=== PATIENT | male | born 1935 | race Caucasian/White ===

== ENCOUNTER 2016-07-28 13:13 | Outpatient (RCR) | payer MEDICARE, OTHER ==
--- OUTSIDE RECORDS SUMMARY | 2016-05-04 15:13 | XMS REPORT | Continuity of Care Document ---
Author Author [facility] Organization [facility] Address Unknown Phone Unavailable Care Team Providers Care Machine Pie Maker Name Role Phone Margy Fontana III PCP [phone] Source Comments Some departments are not documenting in the electronic medical record. If you do not see the information that you expected, contact Release of Information in the Health Information Management department at [phone] for further assistance in locating additional records.[facility] Active Allergies and Adverse Reactions Allergen Noted Date Severity Reactions Comments Demerol 08/24/2011 HALLUCINATIONS Metformin 08/24/2011 SEE COMMENTS Glimepiride has been working better to control blood sugars per pt Propranolol 07/20/2012 SEE COMMENTS altered mental status when tried in the late 1960s Valium 06/21/2012 HALLUCINATIONS Current Medications Prescription Sig. Disp. Refills Start End Date Status Date cyanocobalamin (VITAMIN Inject 1,000 mcg to Active B-12, RUBRAMIN) 1,000 area(s) as directed every mcg/mL injection [address](+) Take 40 mg by mouth Active (PRILOSEC) 40 mg capsule daily. atorvastatin (LIPITOR) 40 Take 40 mg by mouth Active mg tablet daily. donepezil (ARICEPT) 5 mg Take 5 mg by mouth at Active tablet bedtime daily. potassium chloride 20 mEq Take 10 mEq by mouth Active TbER daily. benzonatate (TESSALON) Take 1 Cap by mouth three 20 Cap 0 04/20/20 Active 100 mg capsule times daily as needed for 15 Cough. levothyroxine (SYNTHROID) Take 1 Tab by mouth 90 Tab 3 04/20/20 Active 100 mcg tablet daily. 15 ergocalciferol (VITAMIN Take 1 Cap by mouth every 12 Cap 3 07/04/20 Active D-2) 50,000 unit capsule 7 days. 15 metoprolol (LOPRESSOR) 25 Take 1 Tab by mouth twice 180 Tab 3 Active mg tablet daily. Indications: 15 CHRONIC HEART FAILURE, VENTRICULAR RATE CONTROL IN ATRIAL FIBRILLATION aspirin 81 mg chewable Take 1 Tab by mouth 90 Tab 3 07/04/20 Active tablet daily. 15 epoetin owen (PROCRIT) Inject 1 mL into area(s) 12 mL 1 07/05/20 Active 4,000 unit/mL injection as directed three times 15 weekly. allopurinol (ZYLOPRIM) Take 1 Tab by mouth 30 Tab 3 07/09/20 Active 100 mg tablet daily. 15 clopiDOGrel (PLAVIX) 75 Take 1 Tab by mouth 90 Tab 3 07/17/20 Active mg tablet daily. 15 furosemide (LASIX) 80 mg Take 1 Tab by mouth twice 90 Tab 3 08/01/20 Active tablet daily. 15 spironolactone Take 1 Tab by mouth 90 Tab 3 09/10/19 Active (ALDACTONE) 25 mg tablet daily. 16 Active Problems Problem Noted Date Malnutrition of moderate degree ([place]: 60% to less than 75% of standard weight) ([facility]) Acute on chronic diastolic (congestive) heart failure ([facility]) 06/20/2015 Chronic diastolic heart failure ([facility]) 06/17/2015 CKD (chronic kidney disease) stage 4, GFR 15-29 ml/min ([facility]) 06/11/2015 Gilbert's disease 04/16/2015 Tricuspid valve regurgitation 04/11/2015 Coronary artery disease - Non-obstructive 04/10/2015 Overview: 08/24/11 CT chest 3. Coronary atherosclerosis including calcific plaquing of the LAD, left circumflex and right coronary arteries. While this study was not optimized for assessment of the coronary anatomy, the left main coronary artery appears normal. The right coronary artery is reasonably well visualized and aside from some focal calcification proximally and incomplete visualization of the distal posterior descending branch, the RCA is dominant and appears normal. The mid and distal aspects of the LAD are not well visualized. The left circumflex is medium in caliber and aside from some focal calcification, appears unremarkable. 09/14/11 PC DJL recommended f/u of abnormalities found on CT with home loading unit operator powder charging &qual research manager. Pt scheduled for a cath with his primary loading unit operator powder charging tomorrow, Dr. Davenport. fax /ph and pt will be set up with a qual research manager. 07/15/12 Records requested for 2nd opinion visit regarding HTN and high dose labetolol. We requested cath report. 06/21/14: Cath at [facility] in [place] - 30% lesion in distal LAD & 30% lesion in ostial PDA AVM (arteriovenous malformation) 04/10/2015 Pulmonary lesion 01/02/2013 Overview: Followed by Dr. Clemente and Dr. Fontana Hx of nonischemic cardiomyopathy 07/20/2012 Overview: 1966 He states he contracted a "virus." 1968 1 episode of heart racing in 1968, associated with near syncope. (See Problem "perm AF") 2006 Echo: EF 55-60%, moderate MR, mild-moderate TR, PAP 45 mmHg, marked biatrial enlargement, mild concentric LVH 02/25/09 Per BITUMASTIC APPLIER's note: History of previous nonischemic cardiomyopathy, now normalized 08/24/11 Per DJL's note: mild impairment of left ventricular ejection fraction of unknown etiology. Mitral regurgitation - s/p MV repair 07/20/2012 Overview: 02/25/09 Per BITUMASTIC APPLIER, moderate MR 08/24/11 Per DJL, mild-moderate MR 06/27/12 - Echo: 1) Well preserved global left ventricular systolic function with an ejection fraction of approximately 55% 2) Moderate to severe mitral regurgitation 3) Moderate tricuspid regurgitation 4) PASP is estimated to be approximately 50-55 mmHg 5) Marked biatrial enlargement 6) No evidence of significant valvular stenosis on this study 06/22/14 s/p MV repair (annuloplasty with Vinod Alan 3-D 32 ring) & cryo-MAZE by Dr. Maher at [facility] in [place] Hypertension, essential 07/20/2012 Overview: 02/25/09 BITUMASTIC APPLIER OV BP (Left Arm): 136/84 BP (Right Arm): 124/80 BP Meds: lisinopril-hydrochlorothiazide 20-12.5 bid, coreg 25 mg tabs bid 08/24/11 DJL OV BP 177/87 lisinopril 40 mg qd, metoprolol tartrate 200 mg bid, clonidine 0.2 mg bid 07/15/12 KMD OV BP 160/90 Lisinopril 40 mg qd, metoprolol tartrate 200 mg bid, clonidine 0.2 mg bid, Lasix 40 mg qd (Pt states BP higher than usual as he had not taken his Lasix today.) Pulmonary hypertension (HCC) 07/20/2012 Overview: 02/25/09 Per BITUMASTIC APPLIER, mild pulmonary htn 08/2011 PASP 45 mmHg Prostate cancer s/p post radical prostatectomy. 07/20/2012 Previous Tobacco abuse 07/20/2012 Diabetes mellitus, type 2 (non-insulin dependent) 07/20/2012 Cardiac pacemaker in situ 07/20/2012 Overview: 07/08/10 07/08/10 Symptomatic tachy-anay syndrome/permanent AF > placement of VVIR pacemaker per his home loading unit operator powder charging in [facility] Tachy-anay syndrome (HCC) 07/20/2012 Dyslipidemia (high LDL; low HDL) 07/20/2012 Overview: 06/21/12 TC 112, TG 40, HDL 38, LDL 62 on fish oil 1000 mg tab bid, no statin. LVH (left ventricular hypertrophy) 07/20/2012 Overview: 08/24/11 CT Chest > mild LVH Hemorrhoids 07/20/2012 Anemia, normocytic normochromic 07/20/2012 Overview: 07/15/12 H&H 9.6/30.4 Total bilirubin, elevated 07/20/2012 Overview: 07/15/12 Total bilirubin 3.5 (normal 0.3 - 1.2). AST/ALT and alk phos are normal. I asked the patient to f/u with his PCP at home. 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 Fontana Probable CVA (cerebral vascular accident) 04/07/12 06/27/2012 Overview: 04/08/12 Bilateral Carotid US: Mild atherosclerotic plaque at the proximal internal carotid arteries bilaterally with normal velocities. No evidence of significant stenosis. 06/21/12 Neuro Eval ([facility]) Elena Harris MD > Acute onset of L-sided weakness 04/07/12 04/07/12 Sustained a fall. noted left-sided droopiness, leaning to his left. INR 1.91 and not on ASA at the time. Evaluation at [facility]. CT head neg for a bleed. Initially, had decreased inspector exhaust emissions strength. No vision, swallowing issues, or aphasia. Since then, significant improvement through PT, OT. Requires cane for walking/balance. No prior history of TIA or CVA Possible pure motor lacunar infarct, embolic in nature secondary to his AFib in right subcortical area versus brainstem. Aspirin 81 mg qd added. Ranitidine 150 mg bid started prophylactically. (His last EGD and colonoscopy were neg for bleeding or ulcers, pos for hemorrhoids.0 Pt states he had a angiogram and carotid ultrasound at [facility] > records requested. His carotid ultrasound per patient report was without any significant stenosis. Chronic anticoagulation - warfarin 06/27/2012 Resolved Problems Problem Noted Date Resolved Date Epistaxis 06/21/2015 06/26/2015 Pancytopenia ([facility]) 06/20/2015 06/26/2015 JONATHAN (acute kidney injury) ([facility]) 04/12/2015 06/26/2015 Heart failure ([facility]) 04/10/2015 04/11/2015 Acute on chronic diastolic heart failure ([facility]) 04/10/2015 06/17/2015 Hematochezia 12/24/2012 04/19/2015 Permanent atrial fibrillation ([facility]) 06/27/2012 07/17/2015 Overview: 1966 He states he contracted a "virus." 1968 1 episode of heart racing in 1968, associated with near syncope. Saw his PCP > he was noted to be "out of rhythm." His loading unit operator powder charging prescribed digoxin & propranolol. 1968 Atrial arrhythmias, initially diagnosed in 1968 with an incidental EKG. At the time the patient complained of only skipping heart beats. Placed on digoxin and propranolol in 1968. Did not tolerate propranolol due to mental status changes. Intolerant to propranolol > d/t altered mental status. 1988 Permanent atrial fibrillation since ~ 1988 Over the years Mr. Lowery has remained in atrial fibrillation. He has not undergone cardioversion. He has utilized digoxin with good control. At one point he was placed on a what sounds like Toprol and then switched over to Coreg for nonischemic cardiomyopathy. ~ 2003 Started Coumadin to decrease stroke risk assoc with his AF. He has had quite a bit of difficulty regulating his protimes/INRs. His energy levels has been poor and he feels this might be d/t the Coumadin. 02/25/09 OV with BITUMASTIC APPLIER > initial EP evaluation for persistent/permanent atrial fibrillation > discuss further options in regards to his atrial fibrillation EKG: atrial fibrillation, average HR 61 bpm, LVH with strain pattern, one PVC He has, at this point, been managed solely on rate control medications. He has never undergone cardioversion. His last echo in 2006 showed a left atrial size of 5.5 cm. This, coupled with the fact that he has been in AF for > 20 yrs, makes the likelihood of successful AF ablation quire low (est success rate ~ 60%). He has not tried an antiarrhythmic agent and there is no evidence to suggest that he would feel much better in sinus rhythm as in AF. His biggest concern is that he does not want to be on Coumadin if at all possible. He does not feel that the medication is helpful to him and in fact is causing him side effects. Discussed the Watchmen device (left atrial appendage occluder device currently awaiting FDA approval) which may be a viable option for him. He is going to think about this and contact us if he is interested. 07/08/10 Symptomatic tachy-anay syndrome > placement of VVIR pacemaker per his home loading unit operator powder charging in [facility] 08/24/11 OV with DJL > follow-up evaluation of his atrial fibrillation and stroke risk. Pt feels that Coumadin interferes with his day-to-day activities and is a significant burden for his quality of life. He wishes to be off Coumadin. He specifically wants to discuss the Lariat lateral atrial appendage occluder device, the Watchman device, and alternate anticoagulation (Pradaxa, Xarelto). As per the pt, he was not offered rhythm control in the past, was never cardioverted, and was never on antiarrhythmic medications. His current CV meds: digoxin 0.25 mg qd, Coumadin 5 mg qd, lisinopril/hctz 20/12.5 mg qd, metoprolol tartrate 200 mg b.i.d. EKG: AF w/ ventricular paced complexes, 60 bpm, QTc 440 ms. . He did not want to pursue Pradaxa as in his research he has found that Pradaxa is associated with increased risk of bleeding, especially in people > 75 yr. He would like to do his own research re: the risks and benefits of other newer anticoagulants (Xarelto). He is interested in being evaluated for the Lariat device. CT chest ordered to evaluate the anatomy of his left atrial appendage and pulmonary veins. 08/24/11 CT chest 1. Severe biatrial enlargement. There is no evidence of left atrial or left atrial appendage thrombus. 2. While the pulmonary vein ostia are normally located and appear unremarkable, there is severely reduced contrast opacification of the inferior branch of the left inferior pulmonary vein. This branch of the vein is adjacent to a zone of infiltration in the lung field and there may be reduced venous return related to this, versus possible total or subtotal occlusion. Thrombotic occlusion seems less likely. 3. Coronary atherosclerosis including calcific plaquing of the LAD, left circumflex and right coronary arteries. While this study was not optimized for assessment of the coronary anatomy, the left main coronary artery appears normal. The right coronary artery is reasonably well visualized and aside from some focal calcification proximally and incomplete visualization of the distal posterior descending branch, the RCA is dominant and appears normal. The mid and distal aspects of the LAD are not well visualized. The left circumflex is medium in caliber and aside from some focal calcification, appears unremarkable. 4. Mild concentric left ventricular hypertrophy. 5. Mild calcific atheromatous plaquing of the thoracic aorta 09/14/11 DJL recommended f/u of abnormalities found on CT with home loading unit operator powder charging &qual research manager. Pt scheduled for a cath with his primary loading unit operator powder charging tomorrow, Dr. Davenport. fax /ph and pt will be set up with a qual research manager. 10/27/11 Pt states that his qual research manager stated CT images were "shadows" > they were not cancerous and only had a "fungus." 11/2011 PCs. Per DJL > due to the large size of the pt's left atrium and long history of AF, he would still be at risk for clot formation post Lariat procedure and would need to stay on lifelong anticoagulation. Based on this, the pt decided not to pursue LAAC procedure. He will continue f/u through his home loading unit operator powder charging 06/22/14 - Cryo MAZE ablation at time of mitral valve repair by Dr. Maher at [facility] in [place] 06/17/15: Watchman Device Immunizations Name Dates Previously Given Next Due FLU VACCINE >3YO 04/02/2012 Pneumococcal Vaccine 04/02/2012 (23-Melinda Adult) Social History Tobacco Use Types Packs/Day Years Used Date Former Smoker Cigarettes 1 3 Quit: 06/02/1963 Smokeless Tobacco: Never Used Tobacco Cessation: Counseling Given: No Comments: Alcohol Use Drinks/Week oz/Week Comments No Last Filed Vital Signs Vital Sign Reading Time Taken Blood Pressure 120/56 10/10/2015 11:56 AM REGISTERED NURSE FIRST ASSISTANT Pulse 64 10/10/2015 11:56 AM REGISTERED NURSE FIRST ASSISTANT Temperature 36.9 C (98.4 F) 07/04/2015 7:46 AM REGISTERED NURSE FIRST ASSISTANT Respiratory Rate - - Height 1.778 m (5' 10") 10/10/2015 11:56 AM REGISTERED NURSE FIRST ASSISTANT Weight 72.122 kg (159 lb) 10/10/2015 11:56 AM REGISTERED NURSE FIRST ASSISTANT Body Mass Index 22.81 10/10/2015 11:56 AM REGISTERED NURSE FIRST ASSISTANT Oxygen Saturation 95% 10/10/2015 11:56 AM REGISTERED NURSE FIRST ASSISTANT Plan of Care Health Maintenance Due Date Last Done Comments Physical (Comprehensive) 01/31/1942 Exam Pertussis Vaccine 01/31/1947 Tetanus Vaccine 01/31/1953 Dilated Eye Exam 01/31/1954 Foot Exam 01/31/1954 Shingles Vaccine 1996 Prevnar/Pneumovax (#2) 04/02/2013 04/02/2012 Hba1c 10/10/2015 04/11/2015 Influenza Vaccine 04/02/2016 04/02/2012 Microalbumin 04/12/2016 04/12/2015 Results from Last 3 Months Not on file
[2016-05-04 15:17] LABS: BASOPHILS % (AUTO) 0 % (0-10); EOSINOPHILS # (AUTO) 0.2 10^3/uL (0.0-0.3); EOSINOPHILS % (AUTO) 3 % (0-10); LYMPHOCYTES # (AUTO) 0.5 X 10^3 (1.0-4.0); LYMPHOCYTES % (AUTO) 7 % (12-44); MEAN CORPUSCULAR HEMOGLOBIN 31 PG (25-34); MEAN CORPUSCULAR HGB CONC 32 G/DL (32-36); MEAN CORPUSCULAR VOLUME 97 FL (80-99); MEAN PLATELET VOLUME 10.1 FL (7.4-10.4); MONOCYTES # (AUTO) 0.8 X 10^3 (0.0-1.0); MONOCYTES % (AUTO) 11 % (0-12); NEUTROPHILS # (AUTO) 5.6 X 10^3 (1.8-7.8); NEUTROPHILS % (AUTO) 79 % (42-75); PLATELET COUNT 190 10^3/uL (130-400); RED BLOOD COUNT 3.04 10^6/uL (4.35-5.85); WHITE BLOOD COUNT 7.1 10^3/uL (4.3-11.0)
[2016-05-11 10:20] LABS: BASOPHILS % (AUTO) 0 % (0-10); EOSINOPHILS # (AUTO) 0.2 10^3/uL (0.0-0.3); EOSINOPHILS % (AUTO) 2 % (0-10); LYMPHOCYTES # (AUTO) 0.5 X 10^3 (1.0-4.0); LYMPHOCYTES % (AUTO) 5 % (12-44); MEAN CORPUSCULAR HEMOGLOBIN 31 PG (25-34); MEAN CORPUSCULAR HGB CONC 31 G/DL (32-36); MEAN CORPUSCULAR VOLUME 97 FL (80-99); MONOCYTES # (AUTO) 1.5 X 10^3 (0.0-1.0); MONOCYTES % (AUTO) 15 % (0-12); NEUTROPHILS # (AUTO) 7.7 X 10^3 (1.8-7.8); NEUTROPHILS % (AUTO) 78 % (42-75); PLATELET COUNT 190 10^3/uL (130-400); RED BLOOD COUNT 3.01 10^6/uL (4.35-5.85); WHITE BLOOD COUNT 9.9 10^3/uL (4.3-11.0)
[2016-05-18 11:34] LABS: BASOPHILS % (AUTO) 0 % (0-10); EOSINOPHILS # (AUTO) 0.1 10^3/uL (0.0-0.3); EOSINOPHILS % (AUTO) 1 % (0-10); LYMPHOCYTES # (AUTO) 0.3 X 10^3 (1.0-4.0); LYMPHOCYTES % (AUTO) 4 % (12-44); MEAN CORPUSCULAR HEMOGLOBIN 30 PG (25-34); MEAN CORPUSCULAR HGB CONC 32 G/DL (32-36); MEAN CORPUSCULAR VOLUME 95 FL (80-99); MEAN PLATELET VOLUME 9.2 FL (7.4-10.4); MONOCYTES # (AUTO) 0.8 X 10^3 (0.0-1.0); MONOCYTES % (AUTO) 11 % (0-12); NEUTROPHILS # (AUTO) 6.3 X 10^3 (1.8-7.8); NEUTROPHILS % (AUTO) 83 % (42-75); PLATELET COUNT 248 10^3/uL (130-400); RED BLOOD COUNT 2.95 10^6/uL (4.35-5.85); RED CELL DISTRIBUTION WIDTH 15.6 % (10.0-14.5); WHITE BLOOD COUNT 7.5 10^3/uL (4.3-11.0)
[2016-05-25 14:14] LABS: BASOPHILS % (AUTO) 0 % (0-10); EOSINOPHILS # (AUTO) 0.1 10^3/uL (0.0-0.3); EOSINOPHILS % (AUTO) 1 % (0-10); LYMPHOCYTES # (AUTO) 0.4 X 10^3 (1.0-4.0); LYMPHOCYTES % (AUTO) 4 % (12-44); MEAN CORPUSCULAR HEMOGLOBIN 29 PG (25-34); MEAN CORPUSCULAR HGB CONC 32 G/DL (32-36); MEAN CORPUSCULAR VOLUME 94 FL (80-99); MONOCYTES # (AUTO) 1.4 X 10^3 (0.0-1.0); MONOCYTES % (AUTO) 14 % (0-12); NEUTROPHILS # (AUTO) 8.3 X 10^3 (1.8-7.8); NEUTROPHILS % (AUTO) 82 % (42-75); PLATELET COUNT 241 10^3/uL (130-400); RED BLOOD COUNT 2.92 10^6/uL (4.35-5.85); RED CELL DISTRIBUTION WIDTH 15.1 % (10.0-14.5); WHITE BLOOD COUNT 10.1 10^3/uL (4.3-11.0)
[2016-06-01 13:19] LABS: BASOPHILS % (AUTO) 0 % (0-10); EOSINOPHILS # (AUTO) 0.1 10^3/uL (0.0-0.3); EOSINOPHILS % (AUTO) 1 % (0-10); LYMPHOCYTES # (AUTO) 0.3 X 10^3 (1.0-4.0); LYMPHOCYTES % (AUTO) 4 % (12-44); MEAN CORPUSCULAR HEMOGLOBIN 30 PG (25-34); MEAN CORPUSCULAR HGB CONC 31 G/DL (32-36); MEAN CORPUSCULAR VOLUME 95 FL (80-99); MEAN PLATELET VOLUME 8.8 FL (7.4-10.4); MONOCYTES # (AUTO) 0.7 X 10^3 (0.0-1.0); MONOCYTES % (AUTO) 10 % (0-12); NEUTROPHILS # (AUTO) 5.7 X 10^3 (1.8-7.8); NEUTROPHILS % (AUTO) 84 % (42-75); PLATELET COUNT 255 10^3/uL (130-400); RED BLOOD COUNT 2.73 10^6/uL (4.35-5.85); RED CELL DISTRIBUTION WIDTH 14.9 % (10.0-14.5); WHITE BLOOD COUNT 6.9 10^3/uL (4.3-11.0)
[2016-06-08 13:16] LABS: BASOPHILS # (AUTO) 0.1 10^3/uL (0.0-0.1); BASOPHILS % (AUTO) 1 % (0-10); EOSINOPHILS # (AUTO) 0.2 10^3/uL (0.0-0.3); EOSINOPHILS % (AUTO) 2 % (0-10); LYMPHOCYTES # (AUTO) 0.4 X 10^3 (1.0-4.0); LYMPHOCYTES % (AUTO) 4 % (12-44); MEAN CORPUSCULAR HEMOGLOBIN 30 PG (25-34); MEAN CORPUSCULAR HGB CONC 31 G/DL (32-36); MEAN CORPUSCULAR VOLUME 95 FL (80-99); MONOCYTES % (AUTO) 12 % (0-12); NEUTROPHILS # (AUTO) 6.9 X 10^3 (1.8-7.8); NEUTROPHILS % (AUTO) 81 % (42-75); PLATELET COUNT 260 10^3/uL (130-400); RED BLOOD COUNT 2.73 10^6/uL (4.35-5.85); RED CELL DISTRIBUTION WIDTH 15.3 % (10.0-14.5); WHITE BLOOD COUNT 8.4 10^3/uL (4.3-11.0)
[2016-06-15 12:59] LABS: BASOPHILS # (AUTO) 0.1 10^3/uL (0.0-0.1); BASOPHILS % (AUTO) 1 % (0-10); EOSINOPHILS # (AUTO) 0.1 10^3/uL (0.0-0.3); EOSINOPHILS % (AUTO) 1 % (0-10); LYMPHOCYTES # (AUTO) 0.4 X 10^3 (1.0-4.0); LYMPHOCYTES % (AUTO) 4 % (12-44); MEAN CORPUSCULAR HEMOGLOBIN 29 PG (25-34); MEAN CORPUSCULAR HGB CONC 31 G/DL (32-36); MEAN CORPUSCULAR VOLUME 95 FL (80-99); MEAN PLATELET VOLUME 9.9 FL (7.4-10.4); MONOCYTES # (AUTO) 0.9 X 10^3 (0.0-1.0); MONOCYTES % (AUTO) 9 % (0-12); NEUTROPHILS # (AUTO) 8.5 X 10^3 (1.8-7.8); NEUTROPHILS % (AUTO) 85 % (42-75); PLATELET COUNT 225 10^3/uL (130-400); RED BLOOD COUNT 2.36 10^6/uL (4.35-5.85); RED CELL DISTRIBUTION WIDTH 15.2 % (10.0-14.5)
[2016-06-15 13:25] LABS: ALBUMIN 3.2 G/DL (3.2-4.5); BILIRUBIN,TOTAL 0.7 MG/DL (0.1-1.0); CALCIUM 8.3 MG/DL (8.5-10.1); CREATININE SERUM 2.61 MG/DL (0.60-1.30); TOTAL PROTEIN 5.7 G/DL (6.4-8.2)
[2016-06-16 09:45] LABS: RED BLOOD COUNT 2.38 10^6/uL (4.35-5.85); RETICULOCYTE % 2.15 % (0.50-2.40)
[2016-06-22 14:23] LABS: BASOPHILS % (AUTO) 1 % (0-10); EOSINOPHILS # (AUTO) 0.1 10^3/uL (0.0-0.3); EOSINOPHILS % (AUTO) 1 % (0-10); LYMPHOCYTES # (AUTO) 0.4 X 10^3 (1.0-4.0); LYMPHOCYTES % (AUTO) 6 % (12-44); MEAN CORPUSCULAR HEMOGLOBIN 29 PG (25-34); MEAN CORPUSCULAR HGB CONC 31 G/DL (32-36); MEAN CORPUSCULAR VOLUME 95 FL (80-99); MEAN PLATELET VOLUME 9.2 FL (7.4-10.4); MONOCYTES # (AUTO) 0.6 X 10^3 (0.0-1.0); MONOCYTES % (AUTO) 8 % (0-12); NEUTROPHILS # (AUTO) 6.3 X 10^3 (1.8-7.8); NEUTROPHILS % (AUTO) 85 % (42-75); PLATELET COUNT 228 10^3/uL (130-400); RED BLOOD COUNT 2.74 10^6/uL (4.35-5.85); RED CELL DISTRIBUTION WIDTH 16.6 % (10.0-14.5); WHITE BLOOD COUNT 7.5 10^3/uL (4.3-11.0)
[2016-06-23 08:46] LABS: HOMOCYSTEINE 19.6 umol/L (<=10.3)
[2016-06-25 13:46] LABS: METHYLMALONIC ACID 0.35 umol/L (0.00-0.40)
[2016-06-29 15:50] LABS: BASOPHILS % (AUTO) 0 % (0-10); EOSINOPHILS # (AUTO) 0.1 10^3/uL (0.0-0.3); EOSINOPHILS % (AUTO) 2 % (0-10); LYMPHOCYTES # (AUTO) 0.4 X 10^3 (1.0-4.0); LYMPHOCYTES % (AUTO) 5 % (12-44); MEAN CORPUSCULAR HEMOGLOBIN 29 PG (25-34); MEAN CORPUSCULAR HGB CONC 30 G/DL (32-36); MEAN CORPUSCULAR VOLUME 97 FL (80-99); MONOCYTES # (AUTO) 0.6 X 10^3 (0.0-1.0); MONOCYTES % (AUTO) 8 % (0-12); NEUTROPHILS # (AUTO) 6.3 X 10^3 (1.8-7.8); NEUTROPHILS % (AUTO) 85 % (42-75); PLATELET COUNT 213 10^3/uL (130-400); RED BLOOD COUNT 2.01 10^6/uL (4.35-5.85); RED CELL DISTRIBUTION WIDTH 18.7 % (10.0-14.5); WHITE BLOOD COUNT 7.3 10^3/uL (4.3-11.0)
[2016-07-06 11:37] LABS: BASOPHILS % (AUTO) 0 % (0-10); EOSINOPHILS # (AUTO) 0.1 10^3/uL (0.0-0.3); EOSINOPHILS % (AUTO) 1 % (0-10); LYMPHOCYTES # (AUTO) 0.5 X 10^3 (1.0-4.0); LYMPHOCYTES % (AUTO) 5 % (12-44); MEAN CORPUSCULAR HEMOGLOBIN 30 PG (25-34); MEAN CORPUSCULAR HGB CONC 31 G/DL (32-36); MEAN CORPUSCULAR VOLUME 98 FL (80-99); MEAN PLATELET VOLUME 9.1 FL (7.4-10.4); MONOCYTES # (AUTO) 1.1 X 10^3 (0.0-1.0); MONOCYTES % (AUTO) 12 % (0-12); NEUTROPHILS # (AUTO) 7.3 X 10^3 (1.8-7.8); NEUTROPHILS % (AUTO) 82 % (42-75); PLATELET COUNT 188 10^3/uL (130-400); RED BLOOD COUNT 2.38 10^6/uL (4.35-5.85); RED CELL DISTRIBUTION WIDTH 19.8 % (10.0-14.5)
[2016-07-13 11:54] LABS: BASOPHILS % (AUTO) 0 % (0-10); EOSINOPHILS # (AUTO) 0.1 10^3/uL (0.0-0.3); EOSINOPHILS % (AUTO) 1 % (0-10); LYMPHOCYTES # (AUTO) 0.4 X 10^3 (1.0-4.0); LYMPHOCYTES % (AUTO) 4 % (12-44); MEAN CORPUSCULAR HEMOGLOBIN 29 PG (25-34); MEAN CORPUSCULAR HGB CONC 31 G/DL (32-36); MEAN CORPUSCULAR VOLUME 96 FL (80-99); MEAN PLATELET VOLUME 9.4 FL (7.4-10.4); MONOCYTES # (AUTO) 0.9 X 10^3 (0.0-1.0); MONOCYTES % (AUTO) 9 % (0-12); NEUTROPHILS # (AUTO) 8.3 X 10^3 (1.8-7.8); NEUTROPHILS % (AUTO) 86 % (42-75); PLATELET COUNT 202 10^3/uL (130-400); RED BLOOD COUNT 2.49 10^6/uL (4.35-5.85); RED CELL DISTRIBUTION WIDTH 18.8 % (10.0-14.5); WHITE BLOOD COUNT 9.7 10^3/uL (4.3-11.0)
[2016-07-20 11:52] LABS: BASOPHILS % (AUTO) 0 % (0-10); EOSINOPHILS % (AUTO) 0 % (0-10); LYMPHOCYTES # (AUTO) 0.3 X 10^3 (1.0-4.0); LYMPHOCYTES % (AUTO) 2 % (12-44); MEAN CORPUSCULAR HEMOGLOBIN 31 PG (25-34); MEAN CORPUSCULAR HGB CONC 32 G/DL (32-36); MEAN CORPUSCULAR VOLUME 95 FL (80-99); MEAN PLATELET VOLUME 8.8 FL (7.4-10.4); MONOCYTES # (AUTO) 1.7 X 10^3 (0.0-1.0); MONOCYTES % (AUTO) 13 % (0-12); NEUTROPHILS # (AUTO) 10.4 X 10^3 (1.8-7.8); NEUTROPHILS % (AUTO) 84 % (42-75); PLATELET COUNT 214 10^3/uL (130-400); RED BLOOD COUNT 2.88 10^6/uL (4.35-5.85); WHITE BLOOD COUNT 12.4 10^3/uL (4.3-11.0)
[~2016-07-28 13:13] MED LIST: AC500T PO; ACETAMINOPHEN 500 MG TAB (TYLENOL) CANCER CTR ONE; ALBU8.5H2 IH; AMIO200T PO; AMIO400T5 PO; AMLO10TA82 PO; AMOX500T2 PO; APIX2.5T PO; ASCO500T20 PO; ASP325T PO; ASP81CT; ASP81CT GT; ASPI-808 PO; ASPI-875 PO; ATOR10TA66 PO; ATOR40TA70 PO; BENZ-13 PO; BENZ100C18 PO; CARV6.252 PO; CEFA500C PO; CEFU500T5 PO; CEPH-507 PO; CEPH500C PO; CHOL2000 PO; CLIN150C2 PO; CLON-378 PO; CNC1KV IJ; COLE1TAB PO; CRV25T; CRV25T PO; CYAN100053 IJ; CYAN100053 SC; CYANOCOBALAMIN INJ 1000 MCG/ML (CANCER CENTER) ONE; DARBEPOETIN 60 MCG/ML ARANESP (CANCER CTR) INJ SCH; DIGO250T PO; DIGO250T96 PO; DILT240C PO; DILT240C86 PO; DNPZ5T PO; DOXA1TAB PO; DOXY100C2 PO; FERR-57 PO; FISH OIL 1200MG; FISH1CAP15 PO; FRS325T PO; FRSM40T PO; FURO20TA PO; FURO20TA4 PO; FURO40TA PO; FURO40TA4 PO; FURO80TA83 PO; GLIM1TAB PO; GUAI600T43 PO; HCTZ12.5T; HONE15GE TP; HYDR-3874 PO; IRON PO; KETO5DRO OU; LANOXIN 0.25 MG; LECITHIN PO; LEVO100T7 PO; LEVO75TA PO; LEVO88TA54 PO; LIPA1CAP2 PO; LISI10TA2 PO; LISI1TAB PO; LISI40TA PO; LISI5TAB14 PO; LOPE2CAP PO; LSNP20T; LVT.05T PO; MAGN400C PO; MAGN500T PO; MENT118G TOP; METO-333 PO; METO100T PO; METO100T2 PO; METO200T2 PO; MUPI22OI TP; NS (IVPB) CANCER CENTER 250 ML ONE; NS IV 500 ML (CANCER CENTER) 500 ML ONE; NYST15CR TP; OMEG1CAP24 PO; OMEG1CAP51 PO; OMEG1CAP74 PO; OMEG300C5 PO; OMEP20CA12 PO; OMEP40CA36 PO; PEG250PW PO; PNT40TEC PO; POTA-53 PO; POTA10CA43 PO; POTA10TA PO; POTA10TA36 PO; POTA20TA15 PO; POTASSIUM 595MG PO; ROPI0.5T2 PO; SCR1T1 PO; SPRN25T PO; SULF-222 PO; SULF1TAB35 PO; UBID1CAP51 PO; UBID50CA PO; VIT B12 INJ; VITAMIN B12 SQ; WARF1TAB PO; WARF1TAB6 PO; WARF2TAB PO; WARF4TAB PO; WRF5T; WRF5T PO; [UNRECOGNIZED DRUG - CODE] PO; [UNRECOGNIZED DRUG - OTHER]; [UNRECOGNIZED DRUG - OTHER] PO
[2016-07-28 13:56] LABS: BASOPHILS % (AUTO) 0 % (0-10); EOSINOPHILS % (AUTO) 0 % (0-10); LYMPHOCYTES # (AUTO) 0.4 X 10^3 (1.0-4.0); LYMPHOCYTES % (AUTO) 3 % (12-44); MEAN CORPUSCULAR HEMOGLOBIN 29 PG (25-34); MEAN CORPUSCULAR HGB CONC 31 G/DL (32-36); MEAN CORPUSCULAR VOLUME 94 FL (80-99); MEAN PLATELET VOLUME 9.7 FL (7.4-10.4); MONOCYTES # (AUTO) 0.9 X 10^3 (0.0-1.0); MONOCYTES % (AUTO) 8 % (0-12); NEUTROPHILS # (AUTO) 10.1 X 10^3 (1.8-7.8); NEUTROPHILS % (AUTO) 88 % (42-75); PLATELET COUNT 255 10^3/uL (130-400); RED BLOOD COUNT 3.09 10^6/uL (4.35-5.85); RED CELL DISTRIBUTION WIDTH 16.5 % (10.0-14.5); WHITE BLOOD COUNT 11.5 10^3/uL (4.3-11.0)
== END 2016-08-02 | disposition home or self-care (01) ==
LOC: ONC 13:13
PROVIDERS: ATTEND Internal Medicine Hematology & Oncology
DX: N18.4 Chronic kidney disease, stage 4 (severe) (principal); D63.1 Anemia in chronic kidney disease; D51.9 Vitamin B12 deficiency anemia, unspecified; E03.9 Hypothyroidism, unspecified; I48.2 Chronic atrial fibrillation; I50.32 Chronic diastolic (congestive) heart failure; Z85.46 Personal history of malignant neoplasm of prostate; Z79.899 Other long term (current) drug therapy; Z79.02 Long term (current) use of antithrombotics/antiplatelets; Z79.82 Long term (current) use of aspirin
CPT/HCPCS: 36415; 36430; 80053; 82274; 82728; 83090; 83921; 84443; 85025; 85045; 86850; 86900; 86901; 86920; 96372; 99213

== ENCOUNTER 2016-09-07 14:28 | Outpatient (RCR) | payer MEDICARE, OTHER ==
--- OUTSIDE RECORDS SUMMARY | 2016-08-04 12:27 | XMS REPORT | Continuity of Care Document ---
Author Author [facility] Organization [facility] Address Unknown Phone Unavailable Care Team Providers Care Coordinator Of Online Programs Name Role Phone Margy Fontana III PCP [phone] Source Comments Some departments are not documenting in the electronic medical record. If you do not see the information that you expected, contact Release of Information in the Health Information Management department at [phone] for further assistance in locating additional records.[facility] Active Allergies and Adverse Reactions Allergen Noted [...] omeprazole DR(+) Take 40 mg by mouth twice Active (PRILOSEC) 40 mg capsule daily. atorvastatin (LIPITOR) 40 Take 40 mg by mouth Active mg tablet daily. donepezil (ARICEPT) 5 mg Take 5 mg by mouth at Active tablet bedtime daily. benzonatate (TESSALON) Take 1 Cap by mouth three 20 Cap 0 04/20/20 Active 100 mg capsule times daily as needed for 15 Cough. levothyroxine (SYNTHROID) Take 1 Tab by mouth 90 Tab 3 04/20/20 Active 100 mcg tablet daily. 15 aspirin 81 mg chewable Take 1 Tab by mouth 90 Tab 3 07/04/20 Active tablet daily. 15 epoetin owen (PROCRIT) Inject 1 mL into area(s) 12 mL 1 07/05/20 Active 4,000 unit/mL injection as directed three times 15 weekly. spironolactone Take 1 Tab by mouth 90 Tab 3 09/10/19 Active (ALDACTONE) 25 mg tablet daily. 16 torsemide(+) (DEMADEX) 20 20 mg daily (1 tablet) 120 Tab 3 06/04/20 Active mg tablet except on Wednesday, 16 Wednesday & Wednesday take 40 mg (2 tabs) Indications: EDEMA metoprolol tartrate TAKE ONE TABLET BY MOUTH 180 Tab 3 07/28/20 Active (LOPRESSOR) 25 mg tablet TWICE A DAY 16 metoprolol (LOPRESSOR) 25 Take 1 Tab by mouth twice 180 Tab 3 07/28/20 Discontin mg tablet daily. Indications: 15 16 ued CHRONIC HEART FAILURE, VENTRICULAR RATE CONTROL IN ATRIAL FIBRILLATION allopurinol (ZYLOPRIM) Take 1 Tab by mouth 30 Tab 3 07/09/20 Discontin 100 mg tablet daily. 15 16 ued clopiDOGrel (PLAVIX) 75 Take 1 Tab by mouth 90 Tab 3 07/17/20 Discontin mg tablet daily. 15 16 ued potassium chloride Take 0.5 Tabs by mouth 30 Tab 1 06/04/20 Discontin (K-TAB) 20 mEq tablet daily as needed. Or 16 16 ued instructed Active Problems Problem Noted Date Permanent atrial fibrillation ([facility]) 06/29/2016 Overview: 06/17/15 Watchman implant 08/27/15 TAYE: Intact Watchman MEAGHAN occlusion device. Severe bi-atrial enlargement. Mitral annular right without regurgitation. Small ASD with bi-directional flow. Malnutrition of moderate degree (Coello: 60% to less than 75% of standard weight) ([facility]) Acute on chronic diastolic (congestive) heart failure ([facility]) 06/20/2015 Chronic diastolic heart failure ([facility]) 06/17/2015 CKD (chronic kidney disease) stage 4, GFR 15-29 ml/min ([facility]) 06/11/2015 Gilbert's disease 04/16/2015 Tricuspid valve regurgitation [...] from some focal calcification, appears unremarkable. 09/14/11 [facility] recommended f/u of abnormalities found on CT with home chronometer assembler and adjuster &apparatus repair mechanic. Pt scheduled for a cath with his primary chronometer assembler and adjuster tomorrow, Dr. Davenport. fax /ph and pt will be set up with a apparatus repair mechanic. 07/15/12 Records requested for 2nd opinion visit regarding HTN and high dose labetolol. We requested cath report. 06/21/14: Cath at [facility] in [place] - 30% lesion in distal LAD & 30% lesion in ostial PDA AVM (arteriovenous malformation) 04/10/2015 Pulmonary lesion 01/02/2013 Overview: Followed by Dr. Clemente and Dr. Addi Almonte of nonischemic cardiomyopathy 07/20/2012 Overview: 1966 He states he contracted a "virus." 1968 1 episode of heart racing in 1968, associated with near syncope. (See Problem "perm AF") 2006 Echo: EF 55-60%, moderate MR, mild-moderate TR, PAP 45 mmHg, marked biatrial enlargement, mild concentric LVH 02/25/09 Per COAL CAGER's note: History of previous nonischemic cardiomyopathy, now normalized 08/24/11 Per DJL's note: mild impairment of left ventricular ejection fraction of unknown etiology. Mitral regurgitation - s/p MV repair 07/20/2012 Overview: 02/25/09 Per COAL CAGER, moderate MR 08/24/11 Per DJL, mild-moderate MR [...] ring) & cryo-MAZE by Dr. Maher at [facility] in [place] Hypertension, essential 07/20/2012 Overview: 02/25/09 COAL CAGER OV BP (Left Arm): 136/84 BP (Right [...] Pulmonary hypertension (HCC) 07/20/2012 Overview: 02/25/09 Per COAL CAGER, mild pulmonary htn 08/2011 PASP 45 mmHg Prostate cancer s/p post radical prostatectomy. 07/20/2012 Previous Tobacco abuse 07/20/2012 Diabetes mellitus, type 2 (non-insulin dependent) 07/20/2012 Cardiac pacemaker in situ 07/20/2012 Overview: 07/08/10 07/08/10 Symptomatic tachy-anay syndrome/permanent AF > placement of VVIR pacemaker per his home chronometer assembler and adjuster in [facility] Tachy-anay syndrome (HCC) 07/20/2012 Dyslipidemia (high [...] f/u with his PCP at home. 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 Evaluation at [facility]. CT head neg for a bleed. Initially, had decreased transmission engineer strength. No vision, swallowing issues, or aphasia. [...] had a angiogram and carotid ultrasound at [facility] > records requested. His carotid ultrasound per patient report was without any significant stenosis. Resolved Problems Problem Noted Date Resolved Date Epistaxis 06/21/2015 06/26/2015 Pancytopenia ([facility]) 06/20/2015 06/26/2015 JONATHAN (acute kidney injury) ([facility]) 04/12/2015 06/26/2015 Heart failure ([facility]) 04/10/2015 04/11/2015 Acute on chronic diastolic heart failure ([facility]) 04/10/2015 06/17/2015 Hematochezia 12/24/2012 04/19/2015 Permanent atrial fibrillation ([facility]) 06/27/2012 07/17/2015 Overview: 1966 He states he contracted a "virus." 1968 1 episode of heart racing in 1968, associated with near syncope. Saw his PCP > he was noted to be "out of rhythm." His chronometer assembler and adjuster prescribed digoxin & propranolol. 1968 Atrial arrhythmias, [...] be d/t the Coumadin. 02/25/09 OV with COAL CAGER > initial EP evaluation for persistent/permanent atrial [...] placement of VVIR pacemaker per his home chronometer assembler and adjuster in [facility] 08/24/11 OV with DJL > follow-up [...] of abnormalities found on CT with home chronometer assembler and adjuster &apparatus repair mechanic. Pt scheduled for a cath with his primary chronometer assembler and adjuster tomorrow, Dr. Davenport. fax /ph and pt will be set up with a apparatus repair mechanic. 10/27/11 Pt states that his apparatus repair mechanic stated CT images were "shadows" > they [...] He will continue f/u through his home chronometer assembler and adjuster 06/22/14 - Cryo MAZE ablation at time of mitral valve repair by Dr. Maher at [facility] in [place] 06/17/15: Watchman Device Most Recent Encounters Date Type Specialty Providers Description 07/28/2016 Refill Cardiology Pk Ramsay MD Medication Refill - metoprolol 07/22/2016 Hospital Cardiology Pablito Downing, Encounter MD 07/21/2016 Telephone Cardiology Madison Mcghee RN TAYE Pre-Procedure Instuctions - pre-procedure TAYE for 07/22/2016 at 1300 07/15/2016 Telephone Cardiology María Caro LPN Procedure 07/07/2016 Office Visit Cardiology Pablito Downing, Atrial fibrillation; Heart Failure; Device Check 07/07/2016 [facility] Cardiology Pablito Downing, Encounter MD 07/07/2016 Pre-Procedure Cardiology Stevie Reis RN Pre-Procedure Instructions Instructions - 07/22 TAYE 07/07/2016 Pre-Admit Cardiology Stevie Reis, SAMARA Atrial fibrillation, Orders Only unspecified type (HCC) (Primary Dx) 07/07/2016 Ancillary Cardiology Pablito Downing, Cardiac pacemaker in situ Orders MD (Primary Dx) 06/08/2016 Documentation Cardiology Khounsombath, Wanda Labs Only 06/08/2016 Documentation Cardiology Khounsombath, Wanda Labs Only 06/04/2016 Office Visit Cardiology Chelle Pollock APRN CHF; Jonathan; Anemia 06/04/2016 Documentation Cardiology Lissa Varner Labs Only - BMP 06/04/2016 Orders Only Cardiology Janene Clinton RN Heart failure, unspecified heart failure chronicity, unspecified heart failure type (HCC) (Primary Dx) 06/04/2016 Documentation Cardiology Eden Hicks LPN Labs Only 05/28/2016 Lab Only Internal Medicine Pulmonary hypertension (HCC); Non-rheumatic tricuspid valve insufficiency; Chronic diastolic heart failure (HCC); Coronary artery disease - Non-obstructive; Cardiac pacemaker in situ; CKD (chronic kidney disease) stage 4, GFR 15-29 ml/min (HCC); Fall, subsequent encounter; At high risk for falls 05/28/2016 Office Visit Cardiology Chelle Pollock APRN CHF; Jonathan 05/28/2016 Documentation Cardiology María Allen RN Lab Results W/ medication Changes 05/21/2016 Office Visit Cardiology Aroldo Tena MD Heart Failure - 7 month f/u 05/21/2016 Hospital Cardiology Aroldo Tena MD Encounter 05/15/2016 Orders Only Cardiology Wanda Shay Chronic diastolic heart failure (HCC) (Primary Dx) 05/12/2016 Refill Cardiology Aroldo Tena MD Medication Refill Immunizations Name Dates Previously Given Next Due FLU VACCINE >3YO 04/02/2012 Pneumococcal Vaccine 04/02/2012 (23-Melinda Adult) Social History Tobacco Use Types Packs/Day Years Used Date Former Smoker Cigarettes 1 3 Quit: 06/02/1963 Smokeless Tobacco: Never Used Tobacco Cessation: Counseling Given: No Comments: Alcohol Use Drinks/Week oz/Week Comments No Last Filed Vital Signs Vital Sign Reading Time Taken Blood Pressure 101/49 07/22/2016 2:13 PM FORMING ACID DUMPER Pulse 82 07/22/2016 2:13 PM FORMING ACID DUMPER Temperature 36.9 C (98.4 F) 07/04/2015 7:46 AM FORMING ACID DUMPER Respiratory Rate - - Height 1.778 m (5' 10") 07/22/2016 1:47 PM FORMING ACID DUMPER Weight 72 kg (158 lb 11.7 oz) 07/22/2016 1:47 PM FORMING ACID DUMPER Body Mass Index 22.78 07/22/2016 1:47 PM FORMING ACID DUMPER Oxygen Saturation 100% 07/22/2016 2:13 PM FORMING ACID DUMPER Plan of Care Date Type Specialty Providers Description 08/07/2016 Appointment Otolaryngology Elaina Pérez AUD [address] [place] [address] [phone] (Fax) 08/07/2016 Appointment Otolaryngology Melita Kerns MD [address] [place] [address] [phone] (Fax) Health Maintenance Due Date Last Done Comments Physical (Comprehensive) 01/31/1942 Exam Pertussis Vaccine 01/31/1947 Tetanus Vaccine 01/31/1953 Dilated Eye Exam 01/31/1954 Foot Exam 01/31/1954 Shingles Vaccine 1996 Prevnar/Pneumovax (#2) 04/02/2013 04/02/2012 Hba1c 10/10/2015 04/11/2015 Influenza Vaccine 04/02/2016 04/02/2012 Microalbumin 04/12/2016 04/12/2015 Results from Last 3 Months TRANSESOPHAGEAL ECHOCARDIOGRAM (07/22/2016 1:47 PM) Component Value Range BSA 1.89 m2 ECHO EF 55 % Referring Provider Gio Fontana CV ECHO PV TELETYPE MECHANIC Madison Fernandez Narrative TAYE: 1. Overall left ventricular systolic function is normal. EF~55% 2. Well seated Watchman LA appendage closure device. No para-device leak 3. Severe left atrial enlargement. No thrombus in left atrium or in LA appendage 4. Mildly dilated right ventricle with normal systolic function 5. S/p mitral valve repair with borderline mean gradient of 5 mm Hg. No regurgitation 6. Moderate to severe tricuspid regurgitation 7. No vegetation 8. Bidirectional inter atrial shunt seen by color Doppler at the site of trans-septal puncture DEVICE EVALUATION - PPM (07/07/2016 1:02 PM)Only the most recent of 2 results within the time period is included. Component Value Range Device Implanted By Dr. Davenport in [facility] Next Programming Check 10/2016 Due CHAUNCEY/EOL Indicator BV 2.60v. MR 86.3ppm Generator Intensive Care Medicine Specialist [place] Generator Model # Accent SR RF 1210 Generator Serial # [id number] Generator Implnat Date 07/08/2010 RV Lead Intensive Care Medicine Specialist [place] RV Lead Model # 1948-58cm Isoflex Optim RV Lead Serial # [id number] RV Lead Implant Date 07/08/2010 Pacemaker Dependant No Generator Investigational No Atrial Lead No Investigational Device Type VVI-PM Date of Last Programming 05/21/16 Device Mode VVIR Lower Rate Limit 60 Sensor Rate Limit 130 Mode Switch Status N/A HF Patient No Remote Monitoring? No EP Device Followed by AJS Name EP Device Followed By MAC Device [place] On Demand Transmitter Compatible Estimated Longevity ~9.9-10.4years Counters Clrd Yes Saved to Disc Yes Underlying Rhythm VS 50's Interrogation? Yes ICM Evaluation No Remote Check? No Narrative [facility] "quick"check (please see attached PDF for >detail and EGMs) [07/07/2016 1:04:44 PM - SEBASTIÁN HURLEY] Single chamber pacemaker interrogation. Presenting EGM shows [employer]/VS ~60bpm with occasional PVCs Since 08/01/15(last cleared) Lead trends and battery appear stable. Device appears to be functioning properly. 74% Vpaced Events noted: since 05/26/16 Ventricular:none Full report with EGMs and testing uploaded for more detailed review as needed (see attached) Report reviewed with Dr Downing in clinic BASIC METABOLIC PANEL (06/03/2016)Only the most recent of 4 results within the time period is included. Component Value Range Sodium 139 Potassium 4 Chloride 111 (H) 95-110 CO2 17 (L) 24-34 Blood Urea Nitrogen 27 Creatinine 2.9 (H) 0.6-1.5 Glucose 114 Calcium 7.9 (L) 8.5-10.8 eGFR Non 22 (L) >59 Anion Gap 15 (H) 6-14 Specimen Blood CBC AND DIFF (06/01/2016)Only the most recent of 2 results within the time period is included. Component Value Range White Blood Cells 6.9 RBC 2.73 (L) Hemoglobin 8.1 (L) Hematocrit 26 (L) MCV 95 MCH 30 MCHC 31 (L) Platelet Count 255 MPV 8.8 Neutrophils 84 (H) Absolute Neutrophil Count 5.7 Lymphocytes 4 (L) Absolute Lymph Count 0.3 (L) Monocytes 10 Absolute Monocyte Count 0.7 Eosinophil 1 Absolute Eosinophil Count 0.1 Basophils 0 Absolute Basophil Count 0 Specimen Blood BNP (B-TYPE NATRIURETIC PEPTI) (05/28/2016 2:32 PM) Component Value Range B Type Natriuretic 172 0-100 PG/ML Peptide Specimen Blood BNP POC ER (05/21/2016 9:54 AM) Component Value Range BNP POC 403.0 (H) 0-100 PG/ML POC BASIC METABOLIC PANEL (BMP) (05/21/2016 9:42 AM) Component Value Range Sodium-POC 145 137-147 MMOL/L Potassium-POC 4.2 3.5-5.1 MMOL/L Chloride, POC 117 (H) 98-110 MMOL/L CO2, POC 13 (L) 21-30 MMOL/L Anion Gap, POC 21 (H) 3-12 Glucose, POC 118 (H) 70-100 MG/DL Bun, POC 31 (H) 7-25 MG/DL Creatinine, POC 2.1 (H) 0.4-1.24 MG/DL Ionized Calcium-POC 1.19 1.0-1.3 MMOL/L
[2016-08-04 13:12] LABS: BASOPHILS % (AUTO) 0 % (0-10); EOSINOPHILS % (AUTO) 0 % (0-10); LYMPHOCYTES # (AUTO) 0.4 X 10^3 (1.0-4.0); LYMPHOCYTES % (AUTO) 4 % (12-44); MEAN CORPUSCULAR HEMOGLOBIN 29 PG (25-34); MEAN CORPUSCULAR HGB CONC 31 G/DL (32-36); MEAN CORPUSCULAR VOLUME 94 FL (80-99); MEAN PLATELET VOLUME 9.3 FL (7.4-10.4); MONOCYTES # (AUTO) 0.6 X 10^3 (0.0-1.0); MONOCYTES % (AUTO) 7 % (0-12); NEUTROPHILS % (AUTO) 89 % (42-75); PLATELET COUNT 319 10^3/uL (130-400); RED BLOOD COUNT 2.98 10^6/uL (4.35-5.85); RED CELL DISTRIBUTION WIDTH 17.1 % (10.0-14.5)
[2016-08-10 11:25] LABS: BASOPHILS % (AUTO) 0 % (0-10); EOSINOPHILS % (AUTO) 0 % (0-10); LYMPHOCYTES # (AUTO) 0.3 X 10^3 (1.0-4.0); LYMPHOCYTES % (AUTO) 3 % (12-44); MEAN CORPUSCULAR HEMOGLOBIN 29 PG (25-34); MEAN CORPUSCULAR HGB CONC 31 G/DL (32-36); MEAN CORPUSCULAR VOLUME 94 FL (80-99); MEAN PLATELET VOLUME 8.8 FL (7.4-10.4); MONOCYTES # (AUTO) 0.6 X 10^3 (0.0-1.0); MONOCYTES % (AUTO) 7 % (0-12); NEUTROPHILS # (AUTO) 8.2 X 10^3 (1.8-7.8); NEUTROPHILS % (AUTO) 90 % (42-75); PLATELET COUNT 266 10^3/uL (130-400); RED BLOOD COUNT 2.91 10^6/uL (4.35-5.85); RED CELL DISTRIBUTION WIDTH 17.7 % (10.0-14.5); RETICULOCYTE % 2.33 % (0.50-2.40); WHITE BLOOD COUNT 9.1 10^3/uL (4.3-11.0)
[2016-08-10 12:06] LABS: ALBUMIN 2.8 G/DL (3.2-4.5); BILIRUBIN,TOTAL 0.6 MG/DL (0.1-1.0); CREATININE SERUM 2.84 MG/DL (0.60-1.30); POTASSIUM 4.1 MMOL/L (3.6-5.0); TOTAL PROTEIN 5.3 G/DL (6.4-8.2)
[2016-08-17 14:45] LABS: BASOPHILS % (AUTO) 0 % (0-10); EOSINOPHILS # (AUTO) 0.1 10^3/uL (0.0-0.3); EOSINOPHILS % (AUTO) 1 % (0-10); LYMPHOCYTES # (AUTO) 0.5 X 10^3 (1.0-4.0); LYMPHOCYTES % (AUTO) 4 % (12-44); MEAN CORPUSCULAR HEMOGLOBIN 29 PG (25-34); MEAN CORPUSCULAR HGB CONC 31 G/DL (32-36); MEAN CORPUSCULAR VOLUME 94 FL (80-99); MEAN PLATELET VOLUME 8.8 FL (7.4-10.4); MONOCYTES # (AUTO) 0.7 X 10^3 (0.0-1.0); MONOCYTES % (AUTO) 7 % (0-12); NEUTROPHILS # (AUTO) 9.4 X 10^3 (1.8-7.8); NEUTROPHILS % (AUTO) 88 % (42-75); PLATELET COUNT 270 10^3/uL (130-400); RED BLOOD COUNT 3.12 10^6/uL (4.35-5.85); RED CELL DISTRIBUTION WIDTH 18.2 % (10.0-14.5); WHITE BLOOD COUNT 10.6 10^3/uL (4.3-11.0)
[2016-08-24 11:17] LABS: BASOPHILS % (AUTO) 0 % (0-10); EOSINOPHILS % (AUTO) 0 % (0-10); LYMPHOCYTES # (AUTO) 0.3 X 10^3 (1.0-4.0); LYMPHOCYTES % (AUTO) 3 % (12-44); MEAN CORPUSCULAR HEMOGLOBIN 29 PG (25-34); MEAN CORPUSCULAR HGB CONC 31 G/DL (32-36); MEAN CORPUSCULAR VOLUME 94 FL (80-99); MONOCYTES # (AUTO) 1.1 X 10^3 (0.0-1.0); MONOCYTES % (AUTO) 10 % (0-12); NEUTROPHILS # (AUTO) 9.3 X 10^3 (1.8-7.8); NEUTROPHILS % (AUTO) 87 % (42-75); PLATELET COUNT 210 10^3/uL (130-400); RED BLOOD COUNT 2.61 10^6/uL (4.35-5.85); RED CELL DISTRIBUTION WIDTH 18.5 % (10.0-14.5); WHITE BLOOD COUNT 10.7 10^3/uL (4.3-11.0)
[2016-08-31 14:53] LABS: BASOPHILS % (AUTO) 0 % (0-10); EOSINOPHILS # (AUTO) 0.1 10^3/uL (0.0-0.3); EOSINOPHILS % (AUTO) 1 % (0-10); LYMPHOCYTES # (AUTO) 0.3 X 10^3 (1.0-4.0); LYMPHOCYTES % (AUTO) 3 % (12-44); MEAN CORPUSCULAR HEMOGLOBIN 30 PG (25-34); MEAN CORPUSCULAR HGB CONC 32 G/DL (32-36); MEAN CORPUSCULAR VOLUME 94 FL (80-99); MEAN PLATELET VOLUME 9.5 FL (7.4-10.4); MONOCYTES # (AUTO) 0.7 X 10^3 (0.0-1.0); MONOCYTES % (AUTO) 7 % (0-12); NEUTROPHILS % (AUTO) 89 % (42-75); PLATELET COUNT 211 10^3/uL (130-400); RED BLOOD COUNT 3.12 10^6/uL (4.35-5.85); RED CELL DISTRIBUTION WIDTH 19.6 % (10.0-14.5); WHITE BLOOD COUNT 10.1 10^3/uL (4.3-11.0)
[2016-09-07] MEDS ORDERED: CYANOCOBALAMIN INJ 1000 MCG/ML (CANCER CENTER) ONE (14:36)
[2016-09-07 15:06] LABS: BASOPHILS % (AUTO) 0 % (0-10); EOSINOPHILS % (AUTO) 0 % (0-10); LYMPHOCYTES # (AUTO) 0.2 X 10^3 (1.0-4.0); LYMPHOCYTES % (AUTO) 2 % (12-44); MEAN CORPUSCULAR HEMOGLOBIN 29 PG (25-34); MEAN CORPUSCULAR HGB CONC 31 G/DL (32-36); MEAN CORPUSCULAR VOLUME 95 FL (80-99); MEAN PLATELET VOLUME 9.9 FL (7.4-10.4); MONOCYTES # (AUTO) 1.4 X 10^3 (0.0-1.0); MONOCYTES % (AUTO) 9 % (0-12); NEUTROPHILS # (AUTO) 13.5 X 10^3 (1.8-7.8); NEUTROPHILS % (AUTO) 89 % (42-75); PLATELET COUNT 190 10^3/uL (130-400); RED BLOOD COUNT 3.09 10^6/uL (4.35-5.85); RED CELL DISTRIBUTION WIDTH 18.7 % (10.0-14.5); WHITE BLOOD COUNT 15.2 10^3/uL (4.3-11.0)
== END 2016-11-02 | disposition home or self-care (01) ==
LOC: ONC 14:28
PROVIDERS: ATTEND Internal Medicine Hematology & Oncology
DX: N18.4 Chronic kidney disease, stage 4 (severe) (principal); D63.1 Anemia in chronic kidney disease; D51.9 Vitamin B12 deficiency anemia, unspecified; E03.9 Hypothyroidism, unspecified; I48.2 Chronic atrial fibrillation; I50.32 Chronic diastolic (congestive) heart failure; Z85.46 Personal history of malignant neoplasm of prostate; Z79.899 Other long term (current) drug therapy; Z79.02 Long term (current) use of antithrombotics/antiplatelets; Z79.82 Long term (current) use of aspirin
CPT/HCPCS: 36415; 36430; 80053; 82728; 85025; 85045; 86850; 86900; 86901; 86920; 96372; 99213